=== PATIENT | female | born 2000 | race Caucasian/White ===

== ENCOUNTER 2020-07-29 10:34 | Outpatient (CLI) | payer OTHER | END 2020-07-29 10:35 | disposition home or self-care (01) | LOC: CSHRAD 10:34 | PROVIDERS: ATTEND Internal Medicine Rheumatology | DX: R07.89 Other chest pain (principal); M46.1 Sacroiliitis, not elsewhere classified | CPT/HCPCS: 71046; 72202 ==

== ENCOUNTER 2021-03-03 10:52 | Outpatient (CLI) | payer OTHER | END 2021-03-03 10:53 | disposition home or self-care (01) | LOC: CSHMRI 10:52 | PROVIDERS: ATTEND Psychiatry & Neurology Neurology | DX: G25.0 Essential tremor (principal) | CPT/HCPCS: 70553 ==